=== PATIENT | male | born 1960 | race Two or more races ===

== ENCOUNTER → 2017-09-03 | Outpatient (CLI) | payer OTHER ==
[~2017-09-03] VITALS: Ht 152.4 cm; Wt 96.2 kg
[~2017-09-03] MED LIST: IBUPROFEN800 MG PO; KETO10TA2 PO; NEURONTIN600 MG PO; ORPH100T PO; SULFAMETHOXAZO500 GM; TRIPLE ANTIBIOT15 GM TP; ULTRAM50 MG PO; ZANAFLEX4 M1 PO
== END | disposition home or self-care (01) ==
LOC: PPHC 12:18
DX: H53.8 Other visual disturbances (principal); H26.8 Other specified cataract

== ENCOUNTER 2017-10-16 14:07 | Emergency (ER) | payer OTHER ==
[~2017-10-16] VITALS: Ht 177.8 cm; Wt 87.1 kg
[2017-10-18] MEDS ORDERED: LISINOPRIL20 MG (09:37)
== END 2017-10-16 15:45 | disposition home or self-care (01) ==
LOC: ER 14:07
DX: S93.692A Other sprain of left foot, initial encounter (principal); W22.8XXA Striking against or struck by other objects, initial encounter; Y93.89 Activity, other specified; Y92.098 Other place in other non-institutional residence as the place of occurrence of the external cause; Y99.8 Other external cause status

== ENCOUNTER → 2017-10-18 | Emergency (ER) | payer OTHER ==
[~2017-10-18] VITALS: Ht 177.8 cm; Wt 91.6 kg
[~2017-10-18] MED LIST changes: +LISINOPRIL20 MG
== END | disposition home or self-care (01) ==
LOC: ER 09:03
DX: R42 Dizziness and giddiness (principal); R51 Headache; B34.9 Viral infection, unspecified

== ENCOUNTER 2018-01-01 06:51 | Emergency (ER) | payer OTHER ==
[~2018-01-01] VITALS: Ht 177.8 cm; Wt 916.3 kg
== END 2018-01-01 11:28 | disposition home or self-care (01) ==
LOC: ER 06:51
DX: R42 Dizziness and giddiness (principal)

== ENCOUNTER 2018-05-26 10:50 | Outpatient (CLI) | payer OTHER | END 2018-05-26 11:10 | disposition home or self-care (01) | LOC: LAB 10:50 | DX: I10 Essential (primary) hypertension (principal); Z13.1 Encounter for screening for diabetes mellitus; Z12.11 Encounter for screening for malignant neoplasm of colon; Z12.5 Encounter for screening for malignant neoplasm of prostate; Z11.3 Encounter for screening for infections with a predominantly sexual mode of transmission; M25.512 Pain in left shoulder; M54.2 Cervicalgia; M62.838 Other muscle spasm; Z11.4 Encounter for screening for human immunodeficiency virus [HIV] ==

== ENCOUNTER 2019-07-29 15:31 | Outpatient (CLI) | payer OTHER | END 2019-07-29 16:19 | disposition home or self-care (01) | LOC: EKG 15:31 | DX: I10 Essential (primary) hypertension (principal) ==

== ENCOUNTER 2019-07-30 09:21 | Outpatient (CLI) | payer OTHER | END 2019-07-30 12:38 | disposition home or self-care (01) | LOC: SONOGRAMA 09:21 | DX: R39.198 Other difficulties with micturition (principal); I10 Essential (primary) hypertension; R10.2 Pelvic and perineal pain ==

== ENCOUNTER 2019-07-30 10:36 | Outpatient (CLI) | payer OTHER | END 2019-07-30 11:02 | disposition home or self-care (01) | LOC: LAB 10:36 | DX: R39.198 Other difficulties with micturition (principal); I10 Essential (primary) hypertension; H53.8 Other visual disturbances; N52.1 Erectile dysfunction due to diseases classified elsewhere; Z12.5 Encounter for screening for malignant neoplasm of prostate; Z12.11 Encounter for screening for malignant neoplasm of colon ==

== ENCOUNTER 2019-08-16 10:36 | Outpatient (CLI) | payer OTHER | END 2019-08-16 11:14 | disposition home or self-care (01) | LOC: RAD 10:36 | DX: M25.561 Pain in right knee (principal) ==

== ENCOUNTER 2019-09-14 13:26 | Outpatient (CLI) | payer OTHER | END 2019-09-14 14:00 | disposition home or self-care (01) | LOC: RAD 13:26 | DX: I15.8 Other secondary hypertension (principal); I10 Essential (primary) hypertension ==

== ENCOUNTER 2019-09-14 13:35 | Outpatient (CLI) | payer OTHER | END 2019-09-14 13:47 | disposition home or self-care (01) | LOC: LAB 13:35 | DX: E11.39 Type 2 diabetes mellitus with other diabetic ophthalmic complication (principal); I15.8 Other secondary hypertension; D68.32 Hemorrhagic disorder due to extrinsic circulating anticoagulants; D69.8 Other specified hemorrhagic conditions ==

== ENCOUNTER 2020-02-27 18:21 | Inpatient (IN) | payer OTHER ==
[~2020-02-27] VITALS: Ht 177.8 cm; Wt 91.6 kg
== END 2020-03-02 20:11 | disposition home or self-care (01) | DRG 195 ==
LOC: ER 18:21 → MEDJ 02-28 10:43 → SURH 03-02 16:14
PROVIDERS: ADMIT Internal Medicine; ATTEND Internal Medicine
PROC: 3E0F7GC Introduction of Other Therapeutic Substance into Respiratory Tract, Via Natural or Artificial Opening (ICD-10-PCS; principal; 2020-02-28)
PROC: 8E0ZXY6 Isolation (ICD-10-PCS; 2020-02-28)
DX: J18.1 Lobar pneumonia, unspecified organism (principal); I10 Essential (primary) hypertension; R51 Headache; Z03.818 Encounter for observation for suspected exposure to other biological agents ruled out

== ENCOUNTER → 2020-04-11 10:00 | Outpatient (CLI) | payer OTHER | END | disposition home or self-care (01) | LOC: PPH VACUNA 10:00 | DX: Z23 Encounter for immunization (principal) ==

== ENCOUNTER 2020-07-08 12:49 | Emergency (ER) | payer OTHER ==
[~2020-07-08] VITALS: Ht 177.8 cm; Wt 96.6 kg
== END 2020-07-08 16:48 | disposition home or self-care (01) ==
LOC: ER 12:49
DX: M25.572 Pain in left ankle and joints of left foot (principal); M54.5 Low back pain

== ENCOUNTER 2020-11-06 09:01 | Emergency (ER) | payer OTHER ==
[~2020-11-06] VITALS: Ht 177.8 cm; Wt 92.1 kg
[2020-11-06] MEDS ORDERED: ZANAFLEX4 M1 PO (11:51)
[2020-11-06] MEDS ORDERED: KETO10TA2 PO (11:51)
== END 2020-11-06 12:29 | disposition home or self-care (01) ==
LOC: ER 09:01
DX: M54.2 Cervicalgia (principal); M25.512 Pain in left shoulder; M54.5 Low back pain

== ENCOUNTER → 2021-02-15 | Outpatient (CLI) | payer OTHER | END | disposition home or self-care (01) | LOC: LAB 15:14 | PROVIDERS: ATTEND Emergency Medicine Pediatric Emergency Medicine | DX: Z03.818 Encounter for observation for suspected exposure to other biological agents ruled out (principal) ==

== ENCOUNTER → 2021-03-09 | Emergency (ER) | payer OTHER ==
[~2021-03-09] VITALS: Ht 177.8 cm; Wt 93.0 kg
== END | disposition left against medical advice (07) ==
LOC: ER 12:06
DX: B34.9 Viral infection, unspecified (principal); Z20.822 Contact with and (suspected) exposure to COVID-19

== ENCOUNTER 2021-05-09 11:21 | Emergency (ER) | payer OTHER ==
[~2021-05-09] VITALS: Ht 177.8 cm; Wt 95.7 kg
== END 2021-05-09 17:35 | disposition home or self-care (01) ==
LOC: ER 11:21
DX: R42 Dizziness and giddiness (principal); R53.81 Other malaise; R53.83 Other fatigue; Z03.818 Encounter for observation for suspected exposure to other biological agents ruled out

== ENCOUNTER 2021-11-07 12:20 | Emergency (ER) | payer OTHER ==
[~2021-11-07] VITALS: Ht 177.8 cm; Wt 98.9 kg
[2021-11-07] MEDS ORDERED: DICLOFENAC SODI75 MG PO (17:12)
== END 2021-11-07 17:17 | disposition home or self-care (01) ==
LOC: ER 12:20
DX: R10.31 Right lower quadrant pain (principal); M79.673 Pain in unspecified foot; I10 Essential (primary) hypertension; Z72.0 Tobacco use

== ENCOUNTER 2021-12-05 12:53 | Outpatient (CLI) | payer OTHER ==
[~2021-12-05 12:53] MED LIST changes: +DICLOFENAC SODI75 MG PO
== END 2021-12-05 12:54 | disposition home or self-care (01) ==
LOC: LAB 12:53
PROVIDERS: ATTEND Preventive Medicine Occupational Medicine
DX: U07.1 COVID-19 (principal)

== ENCOUNTER 2021-12-25 13:35 | Emergency (ER) | payer OTHER ==
[~2021-12-25] VITALS: Ht 177.8 cm; Wt 92.1 kg
[2021-12-25] MEDS ORDERED: GENTAMICIN SULF30 GM TOP (14:48)
== END 2021-12-25 14:59 | disposition home or self-care (01) ==
LOC: ER 13:35
DX: H00.15 Chalazion left lower eyelid (principal)

== ENCOUNTER 2022-04-03 15:00 | Outpatient (CLI) | payer OTHER ==
[~2022-04-03 15:00] MED LIST changes: +GENTAMICIN SULF30 GM TOP
== END 2022-04-03 15:10 | disposition home or self-care (01) ==
LOC: PPH VACUNA 15:00
PROVIDERS: ATTEND Emergency Medicine Pediatric Emergency Medicine
DX: Z23 Encounter for immunization (principal)

== ENCOUNTER 2022-04-03 15:26 | Outpatient (CLI) | payer OTHER | END 2022-04-03 15:36 | disposition home or self-care (01) | LOC: PPH VACUNA 15:26 | PROVIDERS: ATTEND Emergency Medicine Pediatric Emergency Medicine | DX: Z23 Encounter for immunization (principal) ==

== ENCOUNTER 2022-11-26 15:10 | Emergency (ER) | payer OTHER ==
[~2022-11-26] VITALS: Ht 177.8 cm; Wt 96.2 kg
== END 2022-11-26 17:45 | disposition home or self-care (01) ==
LOC: ER 15:10
DX: J06.9 Acute upper respiratory infection, unspecified (principal); R53.81 Other malaise; Z20.822 Contact with and (suspected) exposure to COVID-19

== ENCOUNTER 2023-05-16 10:00 | Outpatient (CLI) | payer OTHER | END 2023-05-16 10:10 | disposition home or self-care (01) | LOC: PPH VACUNA 10:00 | PROVIDERS: ATTEND Emergency Medicine Pediatric Emergency Medicine | DX: Z23 Encounter for immunization (principal) | CPT/HCPCS: 90686; G0008 ==

== ENCOUNTER 2023-09-13 11:38 | Emergency (ER) | payer OTHER ==
[~2023-09-13] VITALS: Ht 177.8 cm; Wt 96.6 kg
[2023-09-13] MEDS ORDERED: KETOROLAC TROMETHAMINE 30 MG VIAL IM STA (13:28)
[2023-09-13] MEDS ORDERED: GUAIFENESIN 200 MG/10 ML BLIST.PACK PO STA (13:29)
== END 2023-09-13 13:47 | disposition home or self-care (01) ==
LOC: ER 11:38
DX: J10.1 Influenza due to other identified influenza virus with other respiratory manifestations (principal); R53.81 Other malaise; Z20.822 Contact with and (suspected) exposure to COVID-19

== ENCOUNTER 2024-01-25 12:48 | Emergency (ER) | payer OTHER ==
[~2024-01-25] VITALS: Ht 177.8 cm; Wt 81.6 kg
[2024-01-25] MEDS ORDERED: KETOROLAC TROMETHAMINE 60 MG VIAL IM ONE (13:30)
[2024-01-25] MEDS ORDERED: CEFTRIAXONE SODIUM 2,000 MG VIAL IV ONE (13:30)
== END 2024-01-25 14:06 | disposition home or self-care (01) ==
LOC: ER 12:48
DX: L02.415 Cutaneous abscess of right lower limb (principal)

== ENCOUNTER 2024-02-16 15:12 | Emergency (ER) | payer OTHER ==
[~2024-02-16] VITALS: Ht 177.8 cm; Wt 95.3 kg
[2024-02-16] MEDS ORDERED: KETOROLAC TROMETHAMINE 15 MG VIAL IV STA (15:54)
[2024-02-16] MEDS ORDERED: CEFTRIAXONE SODIUM 2,000 MG VIAL IV STA (15:54)
[2024-02-16] MEDS ORDERED: KETOROLAC TROMETHAMINE 30 MG VIAL ONE (16:28)
[2024-02-16] MEDS ORDERED: CEFTRIAXONE SODIUM 2,000 MG VIAL ONE (16:29)
== END 2024-02-16 16:59 | disposition home or self-care (01) ==
LOC: ER 15:13
DX: L02.211 Cutaneous abscess of abdominal wall (principal)

== ENCOUNTER 2024-03-28 11:04 | Emergency (ER) | payer OTHER ==
[~2024-03-28] VITALS: Ht 177.8 cm; Wt 95.3 kg
[2024-03-28 11:43] LABS: HEMATOCRIT 43.5 % (39.0-48.0); HEMOGLOBIN 14.9 g/dL (13-16.00); MEAN CELL VOLUME 90.1 fL (80.0-100.00); MEAN CORPUSCULAR HEMOGLOBIN 30.9 pg (27.00-32.0); MEAN CORPUSCULAR HGB CONC 34.2 g/dl (32.0-36.0); PLATELET COUNT 254 K/uL (150-450); RED BLOOD COUNT 4.83 M/uL (4.00-6.00); RED CELL DISTRIBUTION WIDTH 13.6 % (11.5-14.5)
[2024-03-28] MEDS ORDERED: DEXAMETHASONE SODIUM PHOSPHATE 4 MG/ML VIAL IM ONE (14:00)
[2024-03-28] MEDS ORDERED: DEXAMETHASONE SODIUM PHOSPHATE 4 MG/ML VIAL ONE (14:26)
== END 2024-03-28 15:03 | disposition home or self-care (01) ==
LOC: ER 11:06
PROVIDERS: General Practice
DX: J06.9 Acute upper respiratory infection, unspecified (principal); J00 Acute nasopharyngitis [common cold]; Z20.822 Contact with and (suspected) exposure to COVID-19

== ENCOUNTER 2024-04-22 03:05 | Outpatient (CLI) | payer OTHER | END 2024-04-22 03:30 | disposition home or self-care (01) | LOC: PPH VACUNA 03:05 | PROVIDERS: ATTEND Emergency Medicine Pediatric Emergency Medicine | DX: Z23 Encounter for immunization (principal) ==

== ENCOUNTER 2024-12-10 15:53 | Emergency (ER) | payer OTHER ==
[~2024-12-10] VITALS: Ht 177.8 cm; Wt 95.3 kg
[~2024-12-10 15:53] MED LIST changes: +DICLOFENAC POTA50 MG PO; +NORFLEX100MG PO
[2024-12-10 16:02] VITALS: BP 144/88; O2SAT 95
[2024-12-10] MEDS ORDERED: CEFTRIAXONE SODIUM 1,000 MG VIAL IM STA (16:52)
[2024-12-10] MEDS ORDERED: CEFTRIAXONE SODIUM 1,000 MG VIAL ONE (17:10)
== END 2024-12-10 17:45 | disposition home or self-care (01) ==
LOC: ER 15:53
DX: L02.31 Cutaneous abscess of buttock (principal); L02.818 Cutaneous abscess of other sites

== ENCOUNTER 2025-01-31 14:23 | Emergency (ER) | payer OTHER ==
[~2025-01-31] VITALS: Ht 177.8 cm; Wt 92.1 kg
[2025-01-31] MEDS ORDERED: GUAIFENESIN/DEXTROMETHORPHAN 100MG/10ML BLIST.PACK PO ONE (15:00)
[2025-01-31] MEDS ORDERED: DEXAMETHASONE SODIUM PHOSPHATE 4 MG/ML VIAL IM ONE (15:00)
[2025-01-31] MEDS ORDERED: AZITHROMYCIN 500 MG TABLET PO ONE (15:00)
[2025-01-31 15:31] LABS: BASO % 0.4 % (0.1-1.2); EOS # 0.14 (0.04-0.54); EOS % 1.3 % (0.7-7.0); LYMPH # 3.03 (1.18-3.74); LYMPH % 27.8 % (19.3-53.1); MEAN PLATELET VOLUME 9.20 fl (9.4-12.4); MONO # 0.70 (0.24-0.82); MONO % 6.4 % (4.7-12.5); NEUT # 6.98 (1.56-6.13); NEUT % 63.9 % (34.0-71.1); RED CELL DISTRIBUTION WIDTH 12.4 % (11.6-14.4)
[2025-01-31 16:05] LABS: COVID-19 AG NEGATIVE (NEGATIVE)
[2025-01-31] MEDS ORDERED: ZITHROMAX500 MG PO (16:13)
[2025-01-31] MEDS ORDERED: TUSNEL LIQUID178 ML PO (16:13)
== END 2025-01-31 16:18 | disposition home or self-care (01) ==
LOC: ER 14:23
PROVIDERS: General Practice
DX: B34.9 Viral infection, unspecified (principal); J06.9 Acute upper respiratory infection, unspecified; J00 Acute nasopharyngitis [common cold]; Z20.822 Contact with and (suspected) exposure to COVID-19; I10 Essential (primary) hypertension